=== PATIENT | female | born 1975 | race African-American/Black ===

== ENCOUNTER 2022-12-28 06:22 | Emergency (ER) | payer OTHER ==
[~2022-12-28] VITALS: Ht 167.6 cm; Wt 214.6 kg
[2022-12-28 06:32] VITALS: O2SAT 97
[2022-12-28] MEDS ORDERED: MORPHINE SULFATE 4 MG/ML CPJ (NOT FOR IM USE) IV STA (06:41)
[2022-12-28] MEDS ORDERED: DEXAMETHASONE 10 MG/ML VIAL IV ONE (06:45)
[2022-12-28 08:16] LABS: BASOPHILS % 0.3 % (0.0-2.0); EOSINOPHILS % 0.3 % (0.0-5.0); HEMATOCRIT. 33.1 % (36.0-48.0); HEMOGLOBIN. 10.1 g/dL (12.0-16.0); LYMPHOCYTES % 12.5 % (20.0-50.0); MEAN CORPUSCULAR HEMOGLOBIN 20.9 pg (28.0-32.0); MEAN CORPUSCULAR HGB CONC 30.5 g/dL (31.0-37.0); MEAN CORPUSCULAR VOLUME 68.5 fL (81.0-99.0); MEAN PLATELET VOLUME 8.6 fl (7.4-10.4); MONOCYTES % 9.6 % (2.0-8.0); NEUTROPHILS % 77.3 % (40.0-76.0); PLATELET 245 x1000/uL (130-400); RED BLOOD CELL COUNT 4.83 mill/uL (4.2-5.4); RED CELL DISTRIBUTION WIDTH 23.1 % (11.6-14.6)
[2022-12-28 08:23] LABS: ADD RBC MORPHOLOGY YES; DIFFERENTIAL COMMENT 1
[2022-12-28 08:24] LABS: CHLORIDE 101 mEq/L (98-107); INDEX HEMOLYSI 1 (1-3); INDEX ICTERIC 1 (1-4); INDEX LIPEMIC 1 (1-3); POTASSIUM 3.3 mEq/L (3.5-5.1); SODIUM 137 mEq/L (136-145)
[2022-12-28 08:29] LABS: PROTHROMBIN TIME 11.1 sec (9.6-11.0)
[2022-12-28 08:32] LABS: ALANINE AMINOTRANSFERASE 23 IU/L (13-61); ALBUMIN 3.1 g/dL (3.4-5.0); ASPARTATE AMINOTRANSFERASE 39 IU/L (15-37); BILIRUBIN TOTAL 0.5 mg/dL (0.1-1.0); CALCIUM 9.3 mg/dL (8.5-10.1); CARBON DIOXIDE 30 mEq/L (21-32); CREATININE 0.9 mg/dL (0.6-1.3); GLUCOSE 121 mg/dL (70-105); PROTEIN TOTAL 8.5 g/dL (6.0-8.3); UREA NITROGEN BLOOD 12 mg/dL (7-21)
[2022-12-28 09:49] LABS: PLATELET ESTIMATE NORMAL
[2022-12-28 09:50] LABS: MICROCYTOSIS 2+
[2022-12-28 09:51] LABS: ANISOCYTOSIS 3+
[2022-12-28 11:22] VITALS: BP 191/100; PULSE 94; RESP 20; TEMP 98.1
== END 2022-12-28 11:29 | disposition short-term general hospital (02) ==
LOC: ER 06:22
DX: M54.50 Low back pain, unspecified (principal); I50.9 Heart failure, unspecified; F32.9 Major depressive disorder, single episode, unspecified
CPT/HCPCS: 80053; 85025; 85610; 36415; 93005; 96374; 96375; 99284; J1100; J2270; Z7610 ×3